=== PATIENT | male | born 1985 | race Caucasian/White ===

== ENCOUNTER 2019-08-22 19:16 | Emergency (ER) | payer BC ==
[~2019-08-22 19:16] MED LIST: Sodium Chloride Irrig Solution 250 ML BOT ONE
[2019-08-22] MEDS ORDERED: Lidocaine 1% 20 ML MDV ONE (19:23)
[2019-08-22] MEDS ORDERED: Adacel (T-DAP) 0.5 ML SYRINGE ONE (19:34)
[2019-08-22] MEDS ORDERED: Cephalexin 500 MG CAP ONE (19:48)
[2019-08-22] MEDS ORDERED: HYDROcodone/Acetaminophen 10/325 mg Tablet ONE (19:48)
[2019-08-22] MEDS ORDERED: Acetaminophen 325 MG TAB ONE (19:48)
[2019-08-22] MEDS ORDERED: Ibuprofen 800 MG TAB ONE (19:48)
--- NOTE | 2019-08-22 20:32 | RAD ---
THREE VIEWS OF THE LEFT THUMB: 08/22/19 COMPARISON: None. HISTORY: Nail in the thumb with pain. FINDINGS: Three views of the left thumb shows a nail adjacent to the distal phalanx of the thumb. This occurs i n a volar direction and may extend to the volar skin of the thumb. It is difficult to tell whether th ere is a small amount of loss of bone of the distal phalanx from this nail. IMPRESSION: Nail seen in the thumb as above. POS: EAA
== END 2019-08-22 20:14 | disposition home or self-care (01) ==
LOC: MADERS 19:16
DX: S60.352A Superficial foreign body of left thumb, initial encounter (principal); Z23 Encounter for immunization; W29.4XXA Contact with nail gun, initial encounter
CPT/HCPCS: 64450; 90471; 90715; J2001

== ENCOUNTER 2022-11-26 15:40 | Emergency (ER) | payer BC ==
[2022-11-26] MEDS ORDERED: Lidocaine 1% (PF) 30 ML VIAL ONE ×2 (16:03→18:34)
[2022-11-26] MEDS ORDERED: Boostrix 0.5 ML (Tdap) VIAL (>/=7 yrs of age) ONE (16:03)
[2022-11-26] MEDS ORDERED: Lidocaine 1% PF 5 ML VIAL ONE (18:33)
[2022-11-26] MEDS ORDERED: Bacitracin 1 PK ONE (20:44)
== END 2022-11-26 21:11 | disposition home or self-care (01) ==
LOC: MADERS 15:40
DX: S62.635A Displaced fracture of distal phalanx of left ring finger, initial encounter for closed fracture (principal); S61.215A Laceration without foreign body of left ring finger without damage to nail, initial encounter; W27.0XXA Contact with workbench tool, initial encounter; Y93.89 Activity, other specified; Y92.009 Unspecified place in unspecified non-institutional (private) residence as the place of occurrence of the external cause; Z23 Encounter for immunization
CPT/HCPCS: 12004; 90471; 90715; J2001